=== PATIENT | female | born 1940 | race Caucasian/White ===

== ENCOUNTER 2017-11-28 07:30 | Inpatient (IN) | payer OTHER ==
[~2017-11-28] VITALS: Ht 165.1 cm; Wt 101.2 kg
[2017-11-28] VITALS (7 sets, daily range): BP systolic 103–147
[2017-11-28] MEDS ORDERED: CEFAZOLIN 1 GM IVPB PREMIX 50 ML IV ONE ×2 (08:00→08:21)
[2017-11-28] MEDS ORDERED: GABAPENTIN 300 MG CAPSULE ONE (08:11)
[2017-11-28] MEDS ORDERED: CELECOXIB 200 MG CAPSULE ONE (08:11)
[2017-11-28] MEDS ORDERED: TRANEXAMIC ACID 650 MG TABLET ONE (08:12)
[2017-11-28] MEDS ORDERED: oxyCODONE HCL 10 MG TAB.ER.12H PO ONE ×2 (08:12→08:29)
[2017-11-28] MEDS ORDERED: ACETAMINOPHEN 500 MG TABLET ONE (08:12)
[2017-11-28] MEDS ORDERED: LOSA1TAB3 PO (08:47)
[2017-11-28] MEDS ORDERED: OXYC-130 PO (08:47)
[2017-11-28] MEDS ORDERED: LOVA40TA75 PO (08:47)
[2017-11-28] MEDS ORDERED: LEVO75TA7 PO (08:47)
[2017-11-28] MEDS ORDERED: CALC200T PO (08:47)
[2017-11-28] MEDS ORDERED: FOLI-59 PO (08:47)
[2017-11-28] MEDS ORDERED: METO-442 PO (08:47)
[2017-11-28] MEDS ORDERED: ASPI-859 PO (08:47)
[2017-11-28] MEDS ORDERED: PRO40 PO (08:47)
[2017-11-28] MEDS ORDERED: POLYMYXIN 500,000/BACIT.10,000 UNITS in NS IRR 1 L IR ONE ×2 (09:44→10:07)
[2017-11-28] MEDS ORDERED: D5/0.45 NS 1,000 ML IV ONE (10:06)
[2017-11-28] MEDS ORDERED: HYDROcodone/ACETAMIN 7.5-325 MG TAB PO PRN (10:15)
[2017-11-28] MEDS ORDERED: ACETAMINOPHEN 325 MG TABLET PO PRN (10:15)
[2017-11-28] MEDS ORDERED: BISACODYL 10 MG/SUPPOSITORY RC PRN (10:15)
[2017-11-28] MEDS ORDERED: LR 1,000 ML IV ONE (11:10)
[2017-11-28] MEDS ORDERED: NALBUPHINE HCL 10 MG/ML AMP IVP PRN (11:15)
[2017-11-28] MEDS ORDERED: KETOROLAC TROMETHAMINE 30 MG VIAL IM PRN (11:15)
[2017-11-28] MEDS ORDERED: ONDANSETRON HCL 4 MG/2 ML VIAL IVP PRN ×3 (11:15→18:30)
[2017-11-28] MEDS ORDERED: fentaNYL CITRATE/PF 100 MCG/2 ML AMP IVP PRN (11:15)
[2017-11-28] MEDS ORDERED: DIPHENHYDRAMINE INJ 50 MG/ML VIAL IVP PRN (11:15)
[2017-11-28] MEDS ORDERED: ePHEDrine sulfate 50 MG/ML VIAL IVP PRN (11:15)
[2017-11-28] MEDS ORDERED: NALOXONE HCL 0.4 MG/ML AMP (NARCAN) IVP PRN (11:15)
[2017-11-28] MEDS ORDERED: DEXAMETHASONE SOD PHOSPHATE 4 MG/ML VIAL IVP ONE (12:05)
[2017-11-28] MEDS ORDERED: METOCLOPRAMIDE HCL 10 MG/2 ML VIAL IVP ONE (12:05)
[2017-11-28] MEDS ORDERED: LR 1,000 ML IV.SOLN IV ONE (12:05)
[2017-11-28] MEDS ORDERED: MIDAZOLAM HCL 5 MG/ML VIAL (VERSED) IV ONE (12:05)
[2017-11-28] MEDS ORDERED: DOXYCYCLINE HYCLATE 100 MG VIAL IV ONE (12:05)
[2017-11-28] MEDS ORDERED: SEVOFLURANE 15 MIN GAS INH ONE (12:05)
[2017-11-28] MEDS ORDERED: fentaNYL CITRATE 250 MCG/5 ML AMP IV ONE (12:05)
[2017-11-28] MEDS ORDERED: PROPOFOL 200MG/ 20ML VIAL (DIPRIVAN) IV ONE (12:05)
[2017-11-28] MEDS ORDERED: TRANEXAMIC ACID 1,000 MG/10 ML VIAL IV ONE (12:05)
[2017-11-28] MEDS ORDERED: MORPHINE SULFATE 10MG/10ML PF AMP EP ONE (12:05)
--- NOTE | 2017-11-28 13:37 | NUR ---
Consult Called Reason for Consultation: HOSPITALIST Was consult called: Y Person who was notified: CRESCENCIO Consulting Physician: YOKASTA MCGILL Work Station Support Specialist Specialty: INTERNAL MEDICINE Work Station Support Specialist Ordering Physician: PRICILA LOCKE
--- NOTE | 2017-11-28 13:40 | NUR ---
POST OP: Received from PACU, awake, oriented S/P Right Total Knee Arthroplasty accompanied by daughter Jaci. Denies any pain. Right knee with dressing and polar ice wrap. with o2 3li/min via nasal cannula with 95% saturation. LR infusing per gravity on the left forearm gauge 20. Holland catheter with clear yellow urine output to a bedside drainage bag. Left leg with SCD, left foot with heel protector. Incentive spirometer is at bedside, per daughter patient was instructed in PACU on how to use it. Oriented to room routine. Call light within reach.
--- NOTE | 2017-11-28 15:30 | NUR ---
Rounds : Patient is asleep. No signs of distress noted.
[2017-11-28] MEDS: CEFAZOLIN 1 GM IVPB PREMIX 50 ML IV SCH ×2 (16:20→23:36)
[2017-11-28] MEDS ORDERED: ONDANSETRON HCL 4 MG/2 ML VIAL ONE (18:27)
--- NOTE | 2017-11-28 18:30 | NUR ---
NOTE: PATIENT IS AWAKE. PATIENT WAS COMPLAINING OF NAUSEA AND HAS BEEN VOMITING. CALLED DR. CERVANTES FOR ORDERS. GAVE PATIENT 4 MG OF ZOFRAN FOR NAUSEA. ALSO HUNG D51/2NS AT 70 ML/HR. PATIENT WANTED TO HOLD XARELTO BECAUSE SHE WAS AFRAID SHED THROW IT UP. PATIENT IS ON 3L NC NOT COMPLAINING OF SHORTNESS OF BREATH. DAUGHTER IS AT BEDSIDE. POLAR ICE FILLED WITH ICE AND WATER. SCD IS ON LEFT LEG. DALEY IS HANGING TO GRAVITY. BED IS IN LOWEST POSITION WITH CALL LIGHT IN REACH. WILL GIVE REPORT TO BUSINESS QUALITY ASSURANCE ANALYST NURSE.
--- NOTE | 2017-11-28 19:07 | NUR ---
IV start: IV on the left F/A is infiltrated, started gauge 22 on the right forearm with blood return on first attempt. Ice pack applied on the infiltrated site.
[2017-11-28] MEDS: D5/0.45 NS 1,000 ML IV SCH (19:22)
--- NOTE | 2017-11-28 19:30 | NUR ---
OPENING, rounds, nausea Pt recieved from day RN s/p R knee surgery. No c/o pain. Still c/o nausea, Zofran PRN admin as per ordered. IV in LA had infiltrated so patient never recieved any of the medication prior via IVP. Fluids running through new R IVL. Xarelto admin as per post op orders. Will continue to monitor pt. Cont POC as per MD orders.
[2017-11-28] MEDS: RIVAROXABAN 10 MG TABLET PO SCH (20:25)
--- NOTE | 2017-11-28 21:30 | NUR ---
rounds Pt resting comfortably in bed at this time, NAD, nausea resolved. Safety maintained, call josue with patient, cont with POC as per MD orders.
--- NOTE | 2017-11-28 23:17 | NUR ---
turned on pillow, pt c/o itchiness Pt with c/o itchiness on arms and belly, NKDA; lotion applied for some relief, no redness noted. Will continue to monitor pt. Pt requesting to be turned on side with pillow to help her sleep. Removed nasal cannula, pt comfortable with out oxygen administration at this time. Safety maintained, call josue with patient, NAD, bed locked and in low position, bed alarm on. Continue with POC as per MD orders.
[2017-11-28] MEDS: MORPHINE SULFATE 10 MG/ML VIAL IM PRN (23:35)
--- NOTE | 2017-11-28 23:45 | NUR ---
pain Pt c/o 9/10 pain at R Knee, PRN morphine administered as per MD orders. Continue to monitor.
--- NOTE | 2017-11-29 01:30 | NUR ---
rounds Pt asked for warm blanket, s/p pain medication, patient in NAD and no c/o pain. Will continue to monitor. Pt resting comfortably at this time, Safety maintained, Call josue with pt, bed locked in low position with alarm on. Addendum: 11/29/17 at 0143 by Risa Snider RN Pt circulation, pulse, color, checked on RLE s/p R knee replacement. No s/s of compartment syndrome. Able to move toes, warm extremity, positive pedal pulses.
--- NOTE | 2017-11-29 03:25 | NUR ---
rounds Pt resting and asleep at this time, NAD noted, safety maintained, call josue with patient, bed locked, alarm on, continue with POC as per MD orders.
--- NOTE | 2017-11-29 05:48 | NUR ---
rounds Polar ice machine properly functioning, refilled ice for day shift. Positive peripheral function and neurovascular check.Pt with no c/o pain. Safety maintained, call josue with patient. Continue with POC as per MD orders.
[2017-11-29 06:07] LABS: BASOPHILS % (AUTO) 0.1 % (0.0-2.0); EOSINOPHILS % (AUTO) 0.1 % (0.0-4.0); HEMATOCRIT 29.8 % (36-48); LYMPHOCYTES # (AUTO) 0.9 K/uL (1.0-5.5); LYMPHOCYTES % (AUTO) 12.6 % (20.5-51.5); MEAN CORPUSCULAR HEMOGLOBIN 30 pg (27-31); MEAN CORPUSCULAR HGB CONC 33 % (32-36); MEAN CORPUSCULAR VOLUME 91 fL (79.0-98.0); MONOCYTES # (AUTO) 0.8 K/uL (0.0-1.0); MONOCYTES % (AUTO) 11.5 % (1.7-9.3); NEUTROPHILS # (AUTO) 5.5 K/uL (1.8-7.7); NEUTROPHILS % (AUTO) 75.7 % (40.0-70.0); PLATELET COUNT (AUTO) 245 K/uL (130-430); RED BLOOD CELL COUNT(AUTO) 3.27 MIL/uL (4.2-6.2); RED CELL DISTRIBUTION WIDTH 12.2 % (9.0-15.0); WHITE BLOOD COUNT (AUTO) 7.2 K/uL (4.8-10.8)
[2017-11-29 06:16] LABS: ANION GAP 7 (5-15); CALCIUM 8.2 mg/dL (8.4-11.0); CHLORIDE 101 mmol/L (98-107); CREATININE 0.73 mg/dL (0.55-1.30); GLUCOSE 213 mg/dL (70-99); POTASSIUM 3.5 mmol/L (3.5-5.1); SODIUM SERUM 136 mmol/L (136-145); UREA NITROGEN, BLOOD 14 mg/dL (8-21)
--- NOTE | 2017-11-29 06:24 | NUR ---
CLOSING Pt resting comfortably in bed at this time, NAD, needs met, safety maintained, call josue with patient, bed locked and in low position with alarm on. Left calf SCD applied, d51/2NS running through R peripheral IVL. Right arm site of infiltration with much less swelling than when recieved pt. Pt with no c/o of nausea, itchiness, pain. Polar ice machine in place. Will endorse to day RN.
--- NOTE | 2017-11-29 06:31 | NUR ---
home meds Med rec noted to be done, in chart and in computer. However, meds "reported" and not actually ordered for the patient. Will endorse to day RN about medications not ordered.
[2017-11-29] MEDS ORDERED: DIPHENHYDRAMINE INJ 50 MG/ML VIAL IVP PRN (09:15)
[2017-11-29] MEDS: MORPHINE SULFATE 10 MG/ML VIAL IM PRN ×2 (09:25→13:51)
[2017-11-29] MEDS: D5/0.45 NS 1,000 ML IV SCH (09:26)
--- NOTE | 2017-11-29 10:44 | NUR ---
DCP. MET WITH PT. A/O. DTR AT BEDSIDE. PT. LIVES IN A SECOND FLOOR APT. WITH . PT. HAS A FWW. PT. C/O PAIN, RECEIVED MORPHINE. DCP HH WITH HOME HE[facility] VS [facility] OR [facility]. COMMODE NOT COVERED. PT. PLAN FOR DISCHARGE TO TOMORROW. HUGH ZAPIEN T [phone]
--- NOTE | 2017-11-29 10:48 | NUR ---
Nutrition Update: 77 year old female admit for total knee replacement. Diet: regular Current wt: 101kg, 222#, BMI 37kg/m2 Ruperto score=15 RD to follow per nutrition care standards. [place], RD
[2017-11-29 12:42] VITALS: BP_SYST 135
--- NOTE | 2017-11-29 16:19 | NUR ---
PHYSICAL THERAPY CO-SIGN The Physical Therapy Progress Notes documented by [employer] have been reviewed. Reviewed/Co-Signed by: Martha Hdez DPT Documentation Done by:INOCENCIO ALMODOVAR PTA I CONCUR W/AM AND PM PT NOTES. CONT PER POC TO PATIENT TOLERANCE. Addendum: 11/29/17 at 1620 by Martha Hdez PT Amended: Links added.
--- NOTE | 2017-11-29 16:30 | NUR ---
Patient is wondering why her regular is not resumed. Dr. Garcia is paged. Awaiting call back.
[2017-11-29 16:46] VITALS: BP_SYST 143
--- NOTE | 2017-11-29 16:55 | NUR ---
Dr. Garcia is paged for the second time about patient's home meds.
--- NOTE | 2017-11-29 17:20 | NUR ---
Dr. Hooker called back, and stated she has not seen the patient, therefore will not resume her home meds.
[2017-11-29] MEDS: RIVAROXABAN 10 MG TABLET PO SCH (17:30)
--- NOTE | 2017-11-29 18:20 | NUR ---
Patient refuses dinner, and eats jello instead.
--- NOTE | 2017-11-29 20:00 | NUR ---
OPENING, rounds Pt refused CPM at this time, machine in room. R knee with polar ice machine, no s/s of compartment syndrome. Pt AOx4, worked with PT today in room. Resting comfortably at this time, fluids running continuously via IVL. Needs met, safety maintained, continue with POC as per MD orders.
[2017-11-29 20:28] VITALS: BP_SYST 133
--- NOTE | 2017-11-29 22:00 | NUR ---
rounds pt resting comfortably in bed, turned onto left side with pillow. NAD, needs met, safety maintained. Pt refused CPM (was also informed she used it for only 4 hours today and doesnt want it). Continue POC as per MD orders.
[2017-11-29 23:58] VITALS: BP_SYST 145
--- NOTE | 2017-11-30 | NUR ---
rounds, educated about harding removal Pt resting comfortably at this time, NAD, discussion about harding catheter removal in the am, patient understands, refusal to be turned with pillows at this time. Says she may want to try the CPM machine tomorrow again. Safety maintained, call joseu with patient, continue with POC as per MD orders.
[2017-11-30] MEDS: D5/0.45 NS 1,000 ML IV SCH (00:08)
[2017-11-30] MEDS: MORPHINE SULFATE 10 MG/ML VIAL IM PRN ×3 (00:49→12:17)
--- NOTE | 2017-11-30 00:54 | NUR ---
pain Pt c/o R knee incisional site pain 9/10 at this time. Pt due for Morphine PRN, administered as per orders. Will reassess pain in 30 minutes.
--- NOTE | 2017-11-30 02:46 | NUR ---
rounds Pt resting asleep in bed at this time, no pain noted. IVF running, Polar ice in place. Safety maintained, call josue with patient, bed locked/low/alarm on. Continue with POC as per MD orders.
--- NOTE | 2017-11-30 04:37 | NUR ---
rounds Pt asleep in bed at this time, NAD noted, safety maintained, continue POC as per orders.
--- NOTE | 2017-11-30 06:33 | NUR ---
CLOSING, harding removed, no pain Pt awake and alert in bed at this time. IV fluids running continuously. Polar ice machine in place on R knee, no signs of compartment syndrome. Harding catheter removed at 0615 as per MD orders to remove post op day2. Will endorse trial of void to day RN. Pt to be properly cleaned up in bed by Day JEWISH HISTORY PROFESSOR (endorsed from night JEWISH HISTORY PROFESSOR) and have linens changed. No pain at this time. Safety maintained, needs met, continue POC as per MD orders. Pt would like to try CPM again today.
--- NOTE | 2017-11-30 07:42 | NUR ---
Opening Note Patient is resting in bed, she is awake and alert, oriented x4, no signs of respiratory distress at the moment on room air, IV site is patent and in tact running D5 1/2NS at 70 ml/hr, she is complaining of pain 8/10 on right leg, Morphine was administered IM per pain scale protocol, right leg is warm to touch, pedal pulses are equal bilaterally, color is within normal limits, no signs of swelling on affected leg, she is receiving polar care on right knee, head to toe assessment and vital signs were taken at this time, safety precautions are in place, bed in lowest position with 2 side rails up, bedside table within reach, patient instructed on how to use call light for assistance, she verbalized understanding, call light left within reach, will continue to monitor patient and reassess pain scale
[2017-11-30 08:03] VITALS: BP_SYST 137
--- NOTE | 2017-11-30 09:50 | NUR ---
RN Rounds Patient is resting on recliner at bedside, daughter at bedside, no signs of respiratory distress on room air, patient wants to see physical therapy to get back into bed, will ask physical therapy to assist her with ambulation
--- NOTE | 2017-11-30 11:25 | NUR ---
DCP. MET WITH PATIENT, DTR AT BEDSIDE. DCP TO [facility] RM [address] A. T [phone]. [facility] [employer]NAGER AT 2 PM. EMAR FAXED TO [facility]. CPM WILL BE DELIVERED TO [facility]. HUGH WELLER RN/CM T [phone]
[2017-11-30 11:48] VITALS: BP_SYST 139
--- NOTE | 2017-11-30 12:08 | NUR ---
Pain Medication patient was administered Morphine IM for pain scale of 9/10 on right knee, no signs of respiratory distress on room air, blood pressure within normal limits, daughter at bedside, safety precautions remain in place, bed in lowest position with 2 side rails up, bedside table and call light left within reach, will continue to monitor patient
[2017-11-30] MEDS ORDERED: LEVOTHYROXINE SODIUM 0.075 MG TABLET PO ONE (12:15)
--- NOTE | 2017-11-30 13:30 | NUR ---
PHYSICAL THERAPY CO-SIGN The Physical Therapy Progress Notes documented by [employer] have been reviewed. I concur with the PM documentation of this CT SCAN SPECIAL PROCEDURES TECHNOLOGIST. Plan: patient is for possible transfer to another facility later today for further rehab services to improve current functional mobility activities. She is making good and steady progress with PT. Reviewed/Co-Signed by: Jessica Law, PT Documentation Done by: Mingo Lyman, CT SCAN SPECIAL PROCEDURES TECHNOLOGIST Addendum: 11/30/17 at 1449 by Jessica Law PT Amended: Links added.
[2017-11-30 13:50] VITALS: BP_SYST 139
--- NOTE | 2017-11-30 14:20 | NUR ---
RN Rounds Patient is resting in bed, daughter at bedside, told patient ambulance called and will be arriving at 2:45 pm, she verbalized understanding, discharge teaching was provided, no other complaints at this time, safety precautions are in place, bed in lowest position with 2 side rails up, bedside table and call light left within reach, will continue to monitor patient
--- NOTE | 2017-11-30 15:25 | NUR ---
Pt's DC to SNF order was faxed to HCP/PA/[employer], Agnes Dunn ([phone]).
--- NOTE | 2017-11-30 15:30 | NUR ---
D/C Patient Patient given medication reconciliation form and D/C instructions. Exit Care provided. Patient verbalized understanding. MD discussed with patient the results and treatment provided. Ambulatory with steady gait for discharge to [facility]. Patient in stable condition, ID band removed. IV catheter removed, intact and dressing applied, no active bleeding. Medication reconciliation provided with discharge paperwork. Patient educated on pain management. All belongings sent with patient.
[2017-12-01] MEDS ORDERED: LEVOTHYROXINE SODIUM 0.075 MG TABLET PO SCH (07:00)
== END 2017-11-30 15:30 | disposition home or self-care (01) | DRG 470 ==
LOC: SMU 07:30
PROVIDERS: ADMIT Orthopaedic Surgery; ATTEND Orthopaedic Surgery
PROC: 0SRC069 Replacement of Right Knee Joint with Oxidized Zirconium on Polyethylene Synthetic Substitute, Cemented, Open Approach (ICD-10-PCS; principal; 2017-11-28 10:00)
DX: M17.11 Unilateral primary osteoarthritis, right knee (principal); E03.9 Hypothyroidism, unspecified; G89.29 Other chronic pain; I10 Essential (primary) hypertension
CPT/HCPCS: 36415; 80048; 85025; 87081; 88305; 88311; 94010; 94760; 97039; 97110-GP; 97116-GP; 97530-GP; C1713; C1776; J0690; J1100; J1200; J2250; J2270; J2274; J2405; J2704; J2765; J3010; J3490; J7120